=== PATIENT | female | born 1940 | race Caucasian/White ===

== ENCOUNTER 2018-02-26 23:55 | Inpatient (IN) | payer OTHER ==
[~2018-02-26] VITALS: Ht 160 cm; Wt 79.4 kg
[~2018-02-26 23:55] MED LIST: AMOX1TAB12 PO; ARTHROTEC1 UDTAB.E1 PO; AZATHIOPRINE50 MG; CARVEDILOL6.25 MG; CEFUROXIME250 MG; CLARINEX5 MG/TAB PO; FLAGYL500MG PO; LORATADINE10 MG; LOSARTAN POTASS50 MG; NASACORT AQ16.5 GM; PRILOSEC40 MG PO; PROTONIX40 MG PO; SEPTRA DS TABLE1 TAB PO; SPIRONOLACTONE25 MG; ULTRACET PO
[2018-03-01] MEDS ORDERED: LEVSIN/SL0.125 MG PO (09:34)
[2018-03-01] MEDS ORDERED: AMOX1TAB5 PO (09:34)
== END 2018-03-01 14:35 | disposition home or self-care (01) | DRG 392 ==
LOC: ER 23:55 → MEDI 02-27 09:56
PROC: BW21Y0Z Computerized Tomography (CT Scan) of Abdomen and Pelvis using Other Contrast, Unenhanced and Enhanced (ICD-10-PCS; principal; 2018-02-27)
DX: K57.32 Diverticulitis of large intestine without perforation or abscess without bleeding (principal); Z86.73 Personal history of transient ischemic attack (TIA), and cerebral infarction without residual deficits

== ENCOUNTER 2018-05-01 09:56 | Inpatient (IN) | payer OTHER ==
[~2018-05-01] VITALS: Ht 157.5 cm; Wt 77.1 kg
[~2018-05-01 09:56] MED LIST changes: +AMOX1TAB5 PO; +LEVSIN/SL0.125 MG PO
[2018-05-10] MEDS ORDERED: PREVACID30 MG PO (12:09)
[2018-05-28] MEDS ORDERED: HYOSCYAMINE0.125 M1 SL (09:54)
[2018-05-28] MEDS ORDERED: NeurRONTin 100mg cap PO (09:56)
[2018-05-30] MEDS ORDERED: SYNTHROID75 MCG (17:07)
== END 2018-05-28 12:31 | disposition home or self-care (01) | DRG 329 ==
LOC: SURH 05-21 06:10 → O/R 05-21 06:10 → SURH 05-21 07:00
PROVIDERS: Surgery
PROC: 0DJD8ZZ Inspection of Lower Intestinal Tract, Via Natural or Artificial Opening Endoscopic (ICD-10-PCS; 2018-05-21)
PROC: 0DTN4ZZ Resection of Sigmoid Colon, Percutaneous Endoscopic Approach (ICD-10-PCS; principal; 2018-05-21 07:00)
PROC: 3E0F7GC Introduction of Other Therapeutic Substance into Respiratory Tract, Via Natural or Artificial Opening (ICD-10-PCS; 2018-05-23)
PROC: 4A033R1 Measurement of Arterial Saturation, Peripheral, Percutaneous Approach (ICD-10-PCS; 2018-05-23)
PROC: BB24Y0Z Computerized Tomography (CT Scan) of Bilateral Lungs using Other Contrast, Unenhanced and Enhanced (ICD-10-PCS; 2018-05-24)
DX: K57.20 Diverticulitis of large intestine with perforation and abscess without bleeding (principal); J18.9 Pneumonia, unspecified organism; J95.89 Other postprocedural complications and disorders of respiratory system, not elsewhere classified; J90 Pleural effusion, not elsewhere classified; J98.11 Atelectasis; B37.0 Candidal stomatitis; Z86.73 Personal history of transient ischemic attack (TIA), and cerebral infarction without residual deficits; R09.02 Hypoxemia; J20.9 Acute bronchitis, unspecified

== ENCOUNTER 2018-05-30 16:47 | Emergency (ER) | payer OTHER ==
[~2018-05-30] VITALS: Ht 157.5 cm; Wt 79.4 kg
== END 2018-05-31 14:23 | disposition home or self-care (01) ==
LOC: ER 16:47
DX: K80.20 Calculus of gallbladder without cholecystitis without obstruction (principal); K57.90 Diverticulosis of intestine, part unspecified, without perforation or abscess without bleeding; I87.2 Venous insufficiency (chronic) (peripheral)

== ENCOUNTER 2019-04-05 05:28 | Emergency (ER) | payer OTHER ==
[~2019-04-05] VITALS: Ht 154.9 cm; Wt 81.6 kg
[~2019-04-05 05:28] MED LIST changes: +HYOSCYAMINE0.125 M1 SL; +NeurRONTin 100mg cap PO; +PREVACID30 MG PO; +SYNTHROID75 MCG
== END 2019-04-05 14:13 | disposition home or self-care (01) ==
LOC: ER 05:28
DX: K29.70 Gastritis, unspecified, without bleeding (principal); K80.20 Calculus of gallbladder without cholecystitis without obstruction

== ENCOUNTER 2019-04-08 09:55 | Inpatient (IN) | payer OTHER ==
[~2019-04-08] VITALS: Ht 61 cm; Wt 5.0 kg
[2019-04-08] MEDS ORDERED: LEVSIN0.125 MG (10:56)
[2019-04-08] MEDS ORDERED: AMOX-CLAV 875-1 EACH (10:58)
[2019-04-11] MEDS ORDERED: INTESTINEX680 M1 PO (12:09)
== END 2019-04-11 13:59 | disposition home or self-care (01) | DRG 419 ==
LOC: ER 09:55 → SURG 19:03
PROVIDERS: Surgery; ADMIT Internal Medicine
PROC: BW40ZZZ Ultrasonography of Abdomen (ICD-10-PCS; 2019-04-08)
PROC: 0FT44ZZ Resection of Gallbladder, Percutaneous Endoscopic Approach (ICD-10-PCS; principal; 2019-04-09 13:30)
DX: K80.00 Calculus of gallbladder with acute cholecystitis without obstruction (principal); E03.8 Other specified hypothyroidism; Z86.73 Personal history of transient ischemic attack (TIA), and cerebral infarction without residual deficits; I11.9 Hypertensive heart disease without heart failure; I25.10 Atherosclerotic heart disease of native coronary artery without angina pectoris

== ENCOUNTER 2019-10-31 05:50 | Day surgery (SDC) | payer OTHER ==
[~2019-10-31 05:50] MED LIST changes: +AMOX-CLAV 875-1 EACH; +INTESTINEX680 M1 PO; +LEVSIN0.125 MG
== END 2019-10-31 10:10 | disposition home or self-care (01) ==
LOC: AMB-ENDOS 05:50
DX: K57.30 Diverticulosis of large intestine without perforation or abscess without bleeding (principal); K62.89 Other specified diseases of anus and rectum

== ENCOUNTER 2021-03-29 20:00 | Emergency (ER) | payer OTHER ==
[~2021-03-29] VITALS: Ht 165.1 cm; Wt 85.3 kg
[2021-03-29] MEDS ORDERED: DRAMAMINE LESS25 MG PO (23:38)
== END 2021-03-30 00:11 | disposition home or self-care (01) ==
LOC: ER 20:00
DX: R42 Dizziness and giddiness (principal)

== ENCOUNTER 2023-07-31 05:51 | Emergency (ER) | payer OTHER ==
[~2023-07-31] VITALS: Ht 162.6 cm; Wt 72.6 kg
[~2023-07-31 05:51] MED LIST changes: +DRAMAMINE LESS25 MG PO
[2023-07-31 09:01] LABS: PH,URINE 6.5 (5.0-8.0); URINE APPEARANCE Clear; URINE BILIRRUBIN Negative (NEGATIVE); URINE BLOOD Trace; URINE COLOR Yellow; URINE GLUCOSE Negative (NEGATIVE); URINE LEUKOCYTE Trace; URINE NITRATE Positive; URINE PROTEIN Negative (NEGATIVE); URINE UROBILINOGEN 0.2 E.U./dl
[2023-07-31 09:02] LABS: URINE EPITHELIAL CELLS 2.7 uL (0.0-38.8); URINE WBC 20.8 uL (0.0-23.2)
[2023-07-31 09:11] LABS: URINE BACTERIA > 9821.5 uL (0.0-1933)
[2023-07-31 09:52] LABS: HEMATOCRIT 41.9 % (36.0-45.00); MEAN CELL VOLUME 92.6 fL (80.00-100.00); MEAN CORPUSCULAR HEMOGLOBIN 30.9 pg (27.00-32.0); MEAN CORPUSCULAR HGB CONC 33.3 g/dl (32.0-36.0); PLATELET COUNT 262 K/uL (150-450); RED BLOOD COUNT 4.52 M/uL (4.00-6.00); RED CELL DISTRIBUTION WIDTH 14.3 % (11.5-14.5)
[2023-07-31 10:51] LABS: ALBUMIN 3.3 gm/dL (3.4-5.0); BILIRUBIN TOTAL 0.37 mg/dL (0.3-1.2); CALCIUM 8.7 mg/dL (8.5-10.1); CREATININE SERUM 0.86 mg/dL (0.55-1.02); GFR 63.33; GLOBULINA 3.7 G/DL (2.4-3.5); POTASSIUM 4.27 mEq/L (3.5-5.1)
[2023-07-31 11:06] LABS: PARTIAL THROMBOPLASTIN TIME 27.6 SECONDS (22.0-34.0); PROTHROMBIN TIME 10.5 SECONDS (9.0-11.5)
[2023-07-31] MEDS ORDERED: BACTRIM DS TAB1 EACH PO (11:26)
== END 2023-07-31 12:49 | disposition home or self-care (01) ==
LOC: ER 05:51
PROVIDERS: General Practice
DX: N39.0 Urinary tract infection, site not specified (principal)

== ENCOUNTER 2024-08-01 10:44 | Outpatient (CLI) | payer OTHER ==
[~2024-08-01 10:44] MED LIST changes: +BACTRIM DS TAB1 EACH PO
== END 2024-08-01 10:45 | disposition home or self-care (01) ==
LOC: NUCLEAR 10:44
PROVIDERS: ATTEND Internal Medicine
DX: R00.1 Bradycardia, unspecified (principal)

== ENCOUNTER 2024-08-01 18:06 | Emergency (ER) | payer OTHER ==
[~2024-08-01] VITALS: Ht 160 cm; Wt 81.6 kg
[2024-08-01] MEDS ORDERED: MORPHINE SULFATE 4 MG/ML VIAL IV ONE (20:15)
[2024-08-01 20:48] LABS: HEMATOCRIT 40.4 % (36.0-45.00); HEMOGLOBIN 13.7 g/dL (12.0-15.00); MEAN CELL VOLUME 91.7 fL (80.00-100.00); MEAN CORPUSCULAR HEMOGLOBIN 31.2 pg (27.00-32.0); PLATELET COUNT 256 K/uL (150-450); RED BLOOD COUNT 4.41 M/uL (4.00-6.00); RED CELL DISTRIBUTION WIDTH 13.4 % (11.5-14.5)
[2024-08-01 21:12] LABS: PARTIAL THROMBOPLASTIN TIME 27.4 SECONDS (22.0-34.0); PROTHROMBIN TIME 10.9 SECONDS (9.0-11.5)
[2024-08-01 21:16] LABS: CREATININE SERUM 0.89 mg/dL (0.55-1.02); GFR 60.72; POTASSIUM 3.85 mEq/L (3.5-5.1)
[2024-08-01] MEDS ORDERED: ENALAPRILAT DIHYDRATE 2.5 MG/2 ML VIAL IV SCH (23:00)
[2024-08-01] MEDS ORDERED: ONDANSETRON HCL 2 MG/ML VIAL IV ONE (23:45)
[2024-08-01] MEDS ORDERED: FAMOTIDINE/PF 20 MG/2 ML VIAL IV ONE (23:45)
[2024-08-02] MEDS ORDERED: MORPHINE SULFATE 4 MG/ML VIAL IV SCH (01:00)
[2024-08-02] MEDS ORDERED: ONDANSETRON HCL 2 MG/ML VIAL IV ONE (05:00)
[2024-08-02] MEDS ORDERED: LORazepam 2 MG/ML VIAL IM STA (07:03)
== END 2024-08-02 14:40 | disposition designated cancer center or children's hospital (05) ==
LOC: ER 18:06
PROVIDERS: Emergency Medicine
DX: H53.8 Other visual disturbances (principal); R51.9 Headache, unspecified; Z88.1 Allergy status to other antibiotic agents

== ENCOUNTER 2024-08-15 05:36 | Inpatient (IN) | payer OTHER ==
[~2024-08-15] VITALS: Ht 165.1 cm; Wt 68.0 kg
[2024-08-15] MEDS ORDERED: PROMETHAZINE HCL 25 MG/ML AMPUL IM STA (06:20)
[2024-08-15] MEDS ORDERED: FAMOTIDINE/PF 20 MG/2 ML VIAL IV PUSH STA (06:21)
[2024-08-15] MEDS ORDERED: 0.9 % SODIUM CHLORIDE 1,000 ML IV ONE (06:30)
[2024-08-15 07:21] LABS: HEMATOCRIT 43.8 % (36.0-45.00); HEMOGLOBIN 15.1 g/dL (12.0-15.00); MEAN CELL VOLUME 91.1 fL (80.00-100.00); MEAN CORPUSCULAR HEMOGLOBIN 31.4 pg (27.00-32.0); MEAN CORPUSCULAR HGB CONC 34.4 g/dl (32.0-36.0); PLATELET COUNT 291 K/uL (150-450); RED BLOOD COUNT 4.81 M/uL (4.00-6.00); RED CELL DISTRIBUTION WIDTH 14.3 % (11.5-14.5)
[2024-08-15 07:46] LABS: INR 1.01; PARTIAL THROMBOPLASTIN TIME 25.9 SECONDS (22.0-34.0)
[2024-08-15 07:52] LABS: ALBUMIN 3.7 gm/dL (3.4-5.0); BILIRUBIN TOTAL 0.6 mg/dL (0.3-1.2); BILIRUBIN,CONJUGATED 0.18 mg/dL (0.0-0.2); BILIRUBIN,UNCONJUGATED 0.42 mg/dL (0.0-0.6); CALCIUM 9.3 mg/dL (8.5-10.1); CREATININE SERUM 0.89 mg/dL (0.55-1.02); GFR 60.72; GLOBULINA 3.9 G/DL (2.4-3.5); POTASSIUM 3.66 mEq/L (3.5-5.1); TOTAL PROTEIN 7.6 gm/dL (6.4-8.2)
[2024-08-15] MEDS ORDERED: ONDANSETRON HCL 2 MG/ML VIAL IV STA ×2 (09:29→12:56)
[2024-08-15] MEDS ORDERED: FAMOTIDINE/PF 20 MG in 0.9 % SODIUM CHLORIDE 8 ML IV PUSH STA (12:56)
[2024-08-15] MEDS ORDERED: MORPHINE SULFATE 4 MG/ML VIAL IV ONE (16:30)
[2024-08-15] MEDS ORDERED: ACETAMINOPHEN 500 MG GEL..CAP PO PRN (17:45)
[2024-08-15] MEDS ORDERED: MORPHINE SULFATE 4 MG/ML CARTRIDGE IV PRN (17:45)
[2024-08-15 17:54] VITALS: BP 155/77
[2024-08-15] MEDS ORDERED: PIPERACILLIN/TAZOBACTAM SODIUM 3.375 GM in 0.9 % SODIUM CHLORIDE 100 ML IV SCH (18:00)
[2024-08-15] MEDS ORDERED: RINGERS SOLUTION,LACTATED 1,000 ML IV SCH (18:00)
[2024-08-15 18:27] LABS: ABG PH 7.389 (7.35-7.45); ABG PO2 64.7 mmHg (80-100); ABG pCO2 35.4 mmHg (35-45); BASE EXCESS -3.3 mmol/l; BICARBONATE 20.9 mmol/l (23-25); SaO2 91.8 %
[2024-08-15 18:32] LABS: allen test SATISFACTORY; o2 21 %; puncture site RADIAL LEFT
[2024-08-15 18:58] LABS: INR 1.05; PARTIAL THROMBOPLASTIN TIME 26.9 SECONDS (22.0-34.0); PROTHROMBIN TIME 11.4 SECONDS (9.0-11.5)
[2024-08-15 21:21] VITALS: O2SAT 96
[2024-08-16] VITALS (10 sets, daily range): BP systolic 142–185; BP diastolic 65–75; O2SAT 87–97
[2024-08-16 05:30] LABS: ALBUMIN 3.1 gm/dL (3.4-5.0); BILIRUBIN TOTAL 1.25 mg/dL (0.3-1.2); BILIRUBIN,CONJUGATED 0.5 mg/dL (0.0-0.2); BILIRUBIN,UNCONJUGATED 0.75 mg/dL (0.0-0.6); CHOL HDL RATIO 1.9 (0-5.0); MAGNESIUM 1.8 mg/dL (1.8-2.4); TOTAL PROTEIN 6.6 gm/dL (6.4-8.2)
[2024-08-16] MEDS ORDERED: LEVOTHYROXINE SODIUM 75 MCG TABLET PO SCH (06:00)
[2024-08-16] MEDS ORDERED: ENOXAPARIN SODIUM 40 MG/0.4 ML SYRINGE SUBCUTANEO SCH (09:00)
[2024-08-16] MEDS ORDERED: PANTOPRAZOLE SODIUM 40 MG/VIAL VIAL IV SCH (09:00)
[2024-08-16] MEDS ORDERED: METOPROLOL TARTRATE 5MG/5ML AMPUL IV NR (17:00)
[2024-08-16] MEDS ORDERED: AMIODARONE HCL 50 MG/ML AMPUL IV NR (17:45)
[2024-08-16] MEDS ORDERED: AMIODARONE HCL 50 MG/ML AMPUL IV SCH (17:45)
[2024-08-16] MEDS ORDERED: LIDOCAINE 5% 1 PATCH ADH. TOP PRN (23:00)
[2024-08-17] VITALS (10 sets, daily range): BP systolic 114–185; BP diastolic 55–85; O2SAT 90–96
[2024-08-17] MEDS ORDERED: MORPHINE SULFATE 4 MG/ML CARTRIDGE IV ONE (08:00)
[2024-08-17 08:57] LABS: ALBUMIN 2.7 gm/dL (3.4-5.0); BILIRUBIN TOTAL 0.64 mg/dL (0.3-1.2); CALCIUM 7.9 mg/dL (8.5-10.1); CREATININE SERUM 0.74 mg/dL (0.55-1.02); GFR 75.13; GLOBULINA 3.4 G/DL (2.4-3.5); POTASSIUM 3.8 mEq/L (3.5-5.1); TOTAL PROTEIN 6.1 gm/dL (6.4-8.2)
[2024-08-17 10:09] LABS: HEMATOCRIT 44.7 % (36.0-45.00); MEAN CELL VOLUME 92.3 fL (80.00-100.00); MEAN CORPUSCULAR HGB CONC 33.6 g/dl (32.0-36.0); PLATELET COUNT 248 K/uL (150-450); RED BLOOD COUNT 4.84 M/uL (4.00-6.00); RED CELL DISTRIBUTION WIDTH 14.6 % (11.5-14.5)
[2024-08-17] MEDS ORDERED: hydrALAZINE HCL 20 MG VIAL IV STA (12:27)
[2024-08-17] MEDS ORDERED: LOSARTAN POTASSIUM 50 MG TABLET PO SCH (13:30)
[2024-08-17] MEDS ORDERED: CARVEDILOL 3.125 MG TABLET PO NR (13:30)
[2024-08-17] MEDS ORDERED: SIMETHICONE 125 MG CAPSULE PO SCH (17:00)
[2024-08-17] MEDS ORDERED: MORPHINE SULFATE 4 MG/ML CARTRIDGE IV PRN (19:45)
[2024-08-17] MEDS ORDERED: CARVEDILOL 3.125 MG TABLET PO SCH (21:00)
[2024-08-18] VITALS (9 sets, daily range): BP systolic 116–160; BP diastolic 71–83; O2SAT 91–99
[2024-08-18] MEDS ORDERED: AMIODARONE HCL 50 MG/ML AMPUL IV ONE (07:15)
[2024-08-18 07:40] LABS: PH,URINE 5.5 (5.0-8.0); URINE APPEARANCE Cloudy; URINE BILIRRUBIN Small (NEGATIVE); URINE BLOOD Trace; URINE COLOR Dark Yellow; URINE GLUCOSE Negative (NEGATIVE); URINE KETONE Trace (NEGATIVE); URINE LEUKOCYTE Small; URINE NITRATE Negative
[2024-08-18 07:44] LABS: URINE BACTERIA 115.9 uL (0.0-1933); URINE EPITHELIAL CELLS 58.2 uL (0.0-38.8); URINE RBC 10.8 uL (0.0-20.8); URINE WBC 89.2 uL (0.0-23.2)
[2024-08-18 08:36] LABS: AMYLASE 124 U/L (25-115); LIPASE 44 U/L (13-75)
[2024-08-18 08:39] LABS: HEMATOCRIT 39.8 % (36.0-45.00); HEMOGLOBIN 13.7 g/dL (12.0-15.00); MEAN CELL VOLUME 90.4 fL (80.00-100.00); MEAN CORPUSCULAR HEMOGLOBIN 31.2 pg (27.00-32.0); MEAN CORPUSCULAR HGB CONC 34.5 g/dl (32.0-36.0); PLATELET COUNT 263 K/uL (150-450); RED CELL DISTRIBUTION WIDTH 14.6 % (11.5-14.5)
[2024-08-18 08:49] LABS: ALBUMIN 2.4 gm/dL (3.4-5.0); BILIRUBIN TOTAL 0.89 mg/dL (0.3-1.2); CALCIUM 7.9 mg/dL (8.5-10.1); CREATININE SERUM 0.53 mg/dL (0.55-1.02); GFR 110.44; GLOBULINA 3.3 G/DL (2.4-3.5); POTASSIUM 3.94 mEq/L (3.5-5.1); TOTAL PROTEIN 5.7 gm/dL (6.4-8.2)
[2024-08-18] MEDS ORDERED: AMIODARONE HCL 200 MG TABLET PO SCH (09:00)
[2024-08-18 09:42] LABS: URINE CAST 0.61 uL (0.0-1.40); URINE PROTEIN 300 (NEGATIVE)
[2024-08-18 12:55] LABS: C-REACTIVE PROTEIN 26.4 MG/DL (0.00-0.29)
[2024-08-18] MEDS ORDERED: hydrOXYzine PAMOATE 25 MG CAPSULE PO PRN (13:15)
[2024-08-18] MEDS ORDERED: AMIODARONE HCL 50 MG/ML AMPUL IV SCH (15:15)
[2024-08-18] MEDS ORDERED: FUROsemide 20 MG/2 ML VIAL IV SCH (20:01)
[2024-08-18] MEDS ORDERED: ENOXAPARIN SODIUM 40 MG/0.4 ML SYRINGE SUBCUTANEO SCH (21:00)
[2024-08-19] VITALS (8 sets, daily range): BP systolic 127–147; BP diastolic 67–74; O2SAT 78–98
[2024-08-19 07:06] LABS: HEMATOCRIT 41.8 % (36.0-45.00); HEMOGLOBIN 14.4 g/dL (12.0-15.00); MEAN CORPUSCULAR HEMOGLOBIN 31.9 pg (27.00-32.0); MEAN CORPUSCULAR HGB CONC 34.3 g/dl (32.0-36.0); PLATELET COUNT 188 K/uL (150-450); RED CELL DISTRIBUTION WIDTH 14.6 % (11.5-14.5)
[2024-08-19] MEDS ORDERED: METOPROLOL TARTRATE 25 MG TABLET PO SCH (09:00)
[2024-08-19] MEDS ORDERED: FAMOTIDINE/PF 20 MG/2 ML VIAL IV SCH (18:20)
[2024-08-19] MEDS ORDERED: ENOXAPARIN SODIUM 80 MG/0.8 ML SYRINGE SUBCUTANEO SCH (21:00)
[2024-08-20] VITALS (9 sets, daily range): BP systolic 135–143; BP diastolic 59–80; O2SAT 96–99
[2024-08-20 00:12] LABS: CALCIUM 7.9 mg/dL (8.5-10.1); CREATININE SERUM 0.68 mg/dL (0.55-1.02); GFR 82.84; POTASSIUM 3.63 mEq/L (3.5-5.1)
[2024-08-20 05:47] LABS: HEMATOCRIT 38.7 % (36.0-45.00); HEMOGLOBIN 12.9 g/dL (12.0-15.00); MEAN CELL VOLUME 92.6 fL (80.00-100.00); MEAN CORPUSCULAR HGB CONC 33.5 g/dl (32.0-36.0); PLATELET COUNT 174 K/uL (150-450); RED BLOOD COUNT 4.17 M/uL (4.00-6.00); RED CELL DISTRIBUTION WIDTH 14.7 % (11.5-14.5)
[2024-08-20 06:28] LABS: AMYLASE 50 U/L (25-115); LIPASE 15 U/L (13-75)
[2024-08-20 06:36] LABS: ALBUMIN 2.1 gm/dL (3.4-5.0); BILIRUBIN TOTAL 0.55 mg/dL (0.3-1.2); CALCIUM 7.8 mg/dL (8.5-10.1); CREATININE SERUM 0.54 mg/dL (0.55-1.02); GFR 108.08; GLOBULINA 3.3 G/DL (2.4-3.5); PHOSPHOROUS 2.1 mg/dL (2.5-4.9); POTASSIUM 3.86 mEq/L (3.5-5.1); TOTAL PROTEIN 5.4 gm/dL (6.4-8.2)
[2024-08-20] MEDS ORDERED: AMIODARONE HCL 200 MG TABLET PO SCH (09:00)
[2024-08-20] MEDS ORDERED: METOPROLOL TARTRATE 50 MG TABLET PO SCH (09:00)
[2024-08-20] MEDS ORDERED: POTASSIUM PHOS,M-BASIC-D-BASIC 15 MM in 0.9 % SODIUM CHLORIDE 250 ML IV ONE (14:00)
[2024-08-20] MEDS ORDERED: CALCIUM CARBONATE/VITAMIN D3 1 TAB TABLET PO SCH (17:00)
[2024-08-20] MEDS ORDERED: AMINO ACIDS/PROTEIN HYDROLYS 30 ML BLIST.PACK PO SCH (17:00)
[2024-08-20] MEDS ORDERED: SIMETHICONE 125 MG CAPSULE PO PRN (17:00)
[2024-08-21] VITALS (9 sets, daily range): BP systolic 136–154; BP diastolic 57–71; O2SAT 90–97
[2024-08-21 06:21] LABS: AMYLASE 23 U/L (25-115); LIPASE 10 U/L (13-75)
[2024-08-21] MEDS ORDERED: RIVAROXABAN 20 MG TABLET PO SCH (09:00)
[2024-08-21] MEDS ORDERED: METOCLOPRAMIDE HCL 5 MG/ML VIAL IV PRN (10:45)
[2024-08-21] MEDS ORDERED: ENALAPRILAT DIHYDRATE 1.25 MG/ML VIAL IV PRN (10:45)
[2024-08-21] MEDS ORDERED: METOPROLOL TARTRATE 25 MG TABLET PO SCH (17:00)
[2024-08-22] VITALS (9 sets, daily range): BP systolic 104–148; BP diastolic 62–79; O2SAT 93–98
[2024-08-22] MEDS ORDERED: GABAPENTIN 300 MG CAPSULE PO ONE ×2 (01:15→17:45)
[2024-08-22 04:52] LABS: HEMATOCRIT 38.6 % (36.0-45.00); HEMOGLOBIN 13.3 g/dL (12.0-15.00); MEAN CELL VOLUME 90.6 fL (80.00-100.00); MEAN CORPUSCULAR HEMOGLOBIN 31.2 pg (27.00-32.0); MEAN CORPUSCULAR HGB CONC 34.4 g/dl (32.0-36.0); PLATELET COUNT 307 K/uL (150-450); RED BLOOD COUNT 4.26 M/uL (4.00-6.00); RED CELL DISTRIBUTION WIDTH 14.4 % (11.5-14.5)
[2024-08-22 05:30] LABS: BILIRUBIN TOTAL 0.83 mg/dL (0.3-1.2); CALCIUM 8.4 mg/dL (8.5-10.1); CREATININE SERUM 0.57 mg/dL (0.55-1.02); GFR 101.54; GLOBULINA 3.4 G/DL (2.4-3.5); MAGNESIUM 1.8 mg/dL (1.8-2.4); PHOSPHOROUS 2.7 mg/dL (2.5-4.9); POTASSIUM 3.83 mEq/L (3.5-5.1); TOTAL PROTEIN 5.4 gm/dL (6.4-8.2)
[2024-08-22] MEDS ORDERED: METOPROLOL TARTRATE 50 MG TABLET PO SCH (09:00)
[2024-08-22] MEDS ORDERED: CEFEPIME HCL 2,000 MG in 0.9 % SODIUM CHLORIDE 100 ML IV SCH (17:00)
[2024-08-22] MEDS ORDERED: KETOROLAC TROMETHAMINE 30 MG VIAL IV ONE (17:45)
[2024-08-23] VITALS (10 sets, daily range): BP systolic 126–153; BP diastolic 59–71; O2SAT 96–99
[2024-08-23] MEDS ORDERED: METRONIDAZOLE/SODIUM CHLORIDE 500 MG/100 ML PIGGYBACK IV SCH (01:00)
[2024-08-23 05:24] LABS: HEMATOCRIT 33.4 % (36.0-45.00); HEMOGLOBIN 11.2 g/dL (12.0-15.00); MEAN CELL VOLUME 91.9 fL (80.00-100.00); MEAN CORPUSCULAR HEMOGLOBIN 30.7 pg (27.00-32.0); MEAN CORPUSCULAR HGB CONC 33.4 g/dl (32.0-36.0); PLATELET COUNT 275 K/uL (150-450); RED BLOOD COUNT 3.63 M/uL (4.00-6.00); RED CELL DISTRIBUTION WIDTH 14.1 % (11.5-14.5)
[2024-08-23 05:55] LABS: ALBUMIN 1.9 gm/dL (3.4-5.0); BILIRUBIN TOTAL 0.55 mg/dL (0.3-1.2); CREATININE SERUM 0.72 mg/dL (0.55-1.02); GFR 77.55; GLOBULINA 3.1 G/DL (2.4-3.5); POTASSIUM 3.8 mEq/L (3.5-5.1)
[2024-08-23 05:56] LABS: CHOL HDL RATIO 4.5 (0-5.0)
[2024-08-23 05:58] LABS: C-REACTIVE PROTEIN 12.6 MG/DL (0.00-0.29)
[2024-08-23] MEDS ORDERED: AA 4.25%/CAL/LYTES/DEXT 5% 1,000 ML PERIFERAL SCH (17:00)
[2024-08-23] MEDS ORDERED: KETOROLAC TROMETHAMINE 30 MG VIAL IV ONE (22:45)
[2024-08-23] MEDS ORDERED: GABAPENTIN 600 MG TABLET PO ONE (22:45)
[2024-08-24] VITALS (8 sets, daily range): BP systolic 132–150; BP diastolic 59–79; O2SAT 97–99
[2024-08-24] MEDS ORDERED: METOPROLOL TARTRATE 50 MG TABLET PO SCH ×2 (01:00→17:00)
[2024-08-24] MEDS ORDERED: METOPROLOL TARTRATE 25 MG TABLET PO SCH (10:09)
[2024-08-24 14:51] LABS: ABG PH 7.465 (7.35-7.45); ABG PO2 86.3 mmHg (80-100); ABG pCO2 43.4 mmHg (35-45); BASE EXCESS 6.1 mmol/l; BICARBONATE 30.6 mmol/l (23-25); SaO2 97.3 %; Tco2 31.9 mmol/l
[2024-08-24 14:52] LABS: allen test SATISFACTORY; o2 32 %; puncture site RADIAL LEFT
[2024-08-24] MEDS ORDERED: MORPHINE SULFATE 4 MG/ML VIAL IV ONE (22:30)
[2024-08-25] VITALS (8 sets, daily range): BP systolic 121–133; BP diastolic 56–67; O2SAT 95–100
[2024-08-25 07:42] LABS: HEMATOCRIT 34.9 % (36.0-45.00); HEMOGLOBIN 11.8 g/dL (12.0-15.00); MEAN CELL VOLUME 91.4 fL (80.00-100.00); MEAN CORPUSCULAR HGB CONC 33.9 g/dl (32.0-36.0); PLATELET COUNT 347 K/uL (150-450); RED BLOOD COUNT 3.81 M/uL (4.00-6.00); RED CELL DISTRIBUTION WIDTH 14.2 % (11.5-14.5)
[2024-08-25 08:28] LABS: ALBUMIN 2.1 gm/dL (3.4-5.0); BILIRUBIN TOTAL 0.64 mg/dL (0.3-1.2); CALCIUM 8.2 mg/dL (8.5-10.1); CREATININE SERUM 0.5 mg/dL (0.55-1.02); GFR 118.12; GLOBULINA 3.3 G/DL (2.4-3.5); PHOSPHOROUS 2.9 mg/dL (2.5-4.9); POTASSIUM 4.24 mEq/L (3.5-5.1); TOTAL PROTEIN 5.4 gm/dL (6.4-8.2)
[2024-08-25] MEDS ORDERED: GABAPENTIN 600 MG TABLET PO NR (13:30)
[2024-08-25] MEDS ORDERED: KETOROLAC TROMETHAMINE 30 MG VIAL IV ONE (13:30)
[2024-08-25] MEDS ORDERED: METOPROLOL TARTRATE 25 MG TABLET PO SCH (17:00)
[2024-08-26] VITALS (8 sets, daily range): BP systolic 120–153; BP diastolic 62–75; O2SAT 97–99
[2024-08-26 06:15] LABS: HEMATOCRIT 34.2 % (36.0-45.00); HEMOGLOBIN 11.6 g/dL (12.0-15.00); MEAN CELL VOLUME 91.6 fL (80.00-100.00); MEAN CORPUSCULAR HGB CONC 33.8 g/dl (32.0-36.0); PLATELET COUNT 344 K/uL (150-450); RED BLOOD COUNT 3.74 M/uL (4.00-6.00); RED CELL DISTRIBUTION WIDTH 14.2 % (11.5-14.5)
[2024-08-26 06:50] LABS: ALBUMIN 2.1 gm/dL (3.4-5.0); BILIRUBIN TOTAL 0.56 mg/dL (0.3-1.2); BILIRUBIN,CONJUGATED 0.23 mg/dL (0.0-0.2); BILIRUBIN,UNCONJUGATED 0.33 mg/dL (0.0-0.6); CALCIUM 8.1 mg/dL (8.5-10.1); CREATININE SERUM 0.58 mg/dL (0.55-1.02); GFR 99.53; GLOBULINA 3.1 G/DL (2.4-3.5); PHOSPHOROUS 2.8 mg/dL (2.5-4.9); POTASSIUM 4.35 mEq/L (3.5-5.1); TOTAL PROTEIN 5.2 gm/dL (6.4-8.2)
[2024-08-26 08:24] LABS: UREA CLEARANCE 22.6 ML/MIN
[2024-08-26] MEDS ORDERED: ONDANSETRON HCL 4 MG in 0.9 % SODIUM CHLORIDE 50 ML IV PRN (17:30)
[2024-08-27] VITALS (9 sets, daily range): BP systolic 139–173; BP diastolic 55–78; O2SAT 95–99
[2024-08-27 06:28] LABS: HEMATOCRIT 37.9 % (36.0-45.00); HEMOGLOBIN 12.7 g/dL (12.0-15.00); MEAN CELL VOLUME 92.5 fL (80.00-100.00); MEAN CORPUSCULAR HEMOGLOBIN 30.9 pg (27.00-32.0); MEAN CORPUSCULAR HGB CONC 33.4 g/dl (32.0-36.0); PLATELET COUNT 370 K/uL (150-450); RED CELL DISTRIBUTION WIDTH 14.3 % (11.5-14.5)
[2024-08-27 07:03] LABS: BILIRUBIN TOTAL 0.57 mg/dL (0.3-1.2); CALCIUM 7.8 mg/dL (8.5-10.1); CREATININE SERUM 0.54 mg/dL (0.55-1.02); GFR 108.08; GLOBULINA 3.2 G/DL (2.4-3.5); POTASSIUM 4.1 mEq/L (3.5-5.1); TOTAL PROTEIN 5.2 gm/dL (6.4-8.2)
[2024-08-27] MEDS ORDERED: CLONAZEPAM 0.5 MG TABLET PO ONE (11:00)
[2024-08-28] VITALS (9 sets, daily range): BP systolic 116–157; BP diastolic 74–76; O2SAT 96–99
[2024-08-29] VITALS (9 sets, daily range): BP systolic 105–171; BP diastolic 55–76; O2SAT 93–99
[2024-08-29 06:31] LABS: HEMATOCRIT 37.4 % (36.0-45.00); HEMOGLOBIN 12.8 g/dL (12.0-15.00); MEAN CELL VOLUME 91.7 fL (80.00-100.00); MEAN CORPUSCULAR HEMOGLOBIN 31.2 pg (27.00-32.0); MEAN CORPUSCULAR HGB CONC 34.1 g/dl (32.0-36.0); PLATELET COUNT 419 K/uL (150-450); RED BLOOD COUNT 4.08 M/uL (4.00-6.00); RED CELL DISTRIBUTION WIDTH 14.6 % (11.5-14.5)
[2024-08-29 07:26] LABS: ALBUMIN 2.3 gm/dL (3.4-5.0); BILIRUBIN TOTAL 0.37 mg/dL (0.3-1.2); CALCIUM 8.1 mg/dL (8.5-10.1); CREATININE SERUM 0.51 mg/dL (0.55-1.02); GFR 115.45; GLOBULINA 3.3 G/DL (2.4-3.5); MAGNESIUM 2.1 mg/dL (1.8-2.4); PHOSPHOROUS 2.7 mg/dL (2.5-4.9); POTASSIUM 5.23 mEq/L (3.5-5.1); TOTAL PROTEIN 5.6 gm/dL (6.4-8.2)
[2024-08-29] MEDS ORDERED: METOCLOPRAMIDE HCL 5 MG/ML VIAL IV PRN (10:30)
[2024-08-29] MEDS ORDERED: SODIUM POLYSTYRENE SULFONATE 30G/8 TSP PO NR (11:07)
[2024-08-29] MEDS ORDERED: FUROsemide 40 MG/4 ML VIAL IV STA (11:09)
[2024-08-29] MEDS ORDERED: AA 4.25%/CAL/LYTES/DEXT 5% 1,000 ML PERIFERAL SCH (17:00)
[2024-08-29] MEDS ORDERED: AMLODIPINE BESYLATE 5 MG TABLET PO SCH (19:17)
[2024-08-30] VITALS (9 sets, daily range): BP systolic 140–160; BP diastolic 55–78; O2SAT 90–100
[2024-08-30 04:11] LABS: ABG PH 7.444 (7.35-7.45); ABG pCO2 44.7 mmHg (35-45)
[2024-08-30 04:12] LABS: ABG PO2 41.8 mmHg (80-100); BASE EXCESS 5.1 mmol/l; Tco2 31.4 mmol/l; allen test SATISFACTORY; o2 21 %; puncture site BRADIAL LEFT
[2024-08-30 04:13] LABS: SaO2 80.3 %
[2024-08-30] MEDS ORDERED: METOPROLOL TARTRATE 50 MG TABLET PO ONE (21:45)
[2024-08-31] VITALS (9 sets, daily range): BP systolic 101–127; BP diastolic 55–73; O2SAT 96–100
[2024-08-31] MEDS ORDERED: METOPROLOL TARTRATE 25 MG TABLET PO SCH (01:00)
[2024-08-31] MEDS ORDERED: METOPROLOL TARTRATE 50 MG,METOPROLOL TARTRATE 25 MG PO NR (10:30)
[2024-08-31] MEDS ORDERED: METOPROLOL TARTRATE 50 MG,METOPROLOL TARTRATE 25 MG PO SCH (17:00)
[2024-08-31] MEDS ORDERED: LEVALBUTEROL HCL 0.63 MG/3 ML SOLUTION IH SCH (20:03)
[2024-09-01] VITALS (8 sets, daily range): BP systolic 132–171; BP diastolic 73–92; O2SAT 94–100
[2024-09-01 07:23] LABS: HEMATOCRIT 37.8 % (36.0-45.00); HEMOGLOBIN 12.8 g/dL (12.0-15.00); MEAN CELL VOLUME 93.4 fL (80.00-100.00); MEAN CORPUSCULAR HEMOGLOBIN 31.5 pg (27.00-32.0); MEAN CORPUSCULAR HGB CONC 33.7 g/dl (32.0-36.0); PLATELET COUNT 420 K/uL (150-450); RED BLOOD COUNT 4.05 M/uL (4.00-6.00); RED CELL DISTRIBUTION WIDTH 14.6 % (11.5-14.5)
[2024-09-01 07:55] LABS: ALBUMIN 2.7 gm/dL (3.4-5.0); BILIRUBIN TOTAL 0.51 mg/dL (0.3-1.2); CALCIUM 8.8 mg/dL (8.5-10.1); CREATININE SERUM 0.62 mg/dL (0.55-1.02); GFR 92.15; GLOBULINA 3.6 G/DL (2.4-3.5); POTASSIUM 4.55 mEq/L (3.5-5.1); TOTAL PROTEIN 6.3 gm/dL (6.4-8.2)
[2024-09-01 10:16] LABS: ABG PH 7.428 (7.35-7.45); ABG PO2 95.3 mmHg (80-100); ABG pCO2 46.8 mmHg (35-45); BASE EXCESS 4.9 mmol/l; BICARBONATE 30.2 mmol/l (23-25); SaO2 97.7 %; Tco2 31.7 mmol/l; o2 50 %; puncture site RADIAL RIGHT
[2024-09-01 10:17] LABS: allen test SATISFACTORY
[2024-09-01 14:11] LABS: ABG PO2 76.6 mmHg (80-100); ABG pCO2 43.2 mmHg (35-45); BASE EXCESS 5.5 mmol/l; SaO2 96.1 %; Tco2 31.4 mmol/l; o2 40 %
[2024-09-01 14:12] LABS: allen test SATISFACTORY; puncture site RADIAL LEFT
[2024-09-02] VITALS (8 sets, daily range): BP systolic 115–161; BP diastolic 69–77; O2SAT 93–100
[2024-09-02 17:50] LABS: ABG PH 7.478 (7.35-7.45); ABG pCO2 38.6 mmHg (35-45); BASE EXCESS 4.3 mmol/l; SaO2 88.7 %
[2024-09-02 17:51] LABS: ABG PO2 50.5 mmHg (80-100); Tco2 29.2 mmol/l; allen test SATISFACTORY; o2 21 %; puncture site RADIAL RIGHT
[2024-09-03] VITALS (8 sets, daily range): BP systolic 142–157; BP diastolic 70–76; O2SAT 90–98
[2024-09-03 12:16] LABS: HEMATOCRIT 35.4 % (36.0-45.00); HEMOGLOBIN 12.1 g/dL (12.0-15.00); MEAN CELL VOLUME 92.6 fL (80.00-100.00); MEAN CORPUSCULAR HEMOGLOBIN 31.6 pg (27.00-32.0); MEAN CORPUSCULAR HGB CONC 34.1 g/dl (32.0-36.0); PLATELET COUNT 285 K/uL (150-450); RED BLOOD COUNT 3.82 M/uL (4.00-6.00); RED CELL DISTRIBUTION WIDTH 15.1 % (11.5-14.5)
[2024-09-03 13:14] LABS: ALBUMIN 2.5 gm/dL (3.4-5.0); BILIRUBIN TOTAL 0.57 mg/dL (0.3-1.2); CALCIUM 8.6 mg/dL (8.5-10.1); CREATININE SERUM 0.61 mg/dL (0.55-1.02); GFR 93.9; GLOBULINA 3.5 G/DL (2.4-3.5); POTASSIUM 4.84 mEq/L (3.5-5.1)
[2024-09-04 01:43] VITALS: BP 136/63; O2SAT 96
[2024-09-04 07:45] VITALS: BP 155/77; O2SAT 97
[2024-09-04 09:00] VITALS: O2SAT 99
[2024-09-04] MEDS ORDERED: AMIODARONE HCL200 MG PO (10:32)
[2024-09-04] MEDS ORDERED: XARELTO20 MG PO (10:32)
[2024-09-04] MEDS ORDERED: LEVOTHYROXINE75 MCG PO (10:33)
[2024-09-04] MEDS ORDERED: CALCIUM 500-VI1 EAC6 PO (10:33)
[2024-09-04] MEDS ORDERED: METOPROLOL TART75 MG PO (10:34)
[2024-09-04] MEDS ORDERED: PRE PROTEIN1 EACH PO (10:34)
[2024-09-04] MEDS ORDERED: PANTOPRAZOLE SO20 MG PO (10:35)
[2024-09-04] MEDS ORDERED: LOPRESSOR25 MG PO (11:39)
== END 2024-09-04 13:28 | disposition home or self-care (01) | DRG 439 ==
LOC: ER 05:36 → MEDI 18:01
PROVIDERS: General Practice; Internal Medicine; Internal Medicine Infectious Disease; Student in an Organized Health Care Education/Training Program; ADMIT Internal Medicine; ATTEND Internal Medicine
PROC: BF37ZZZ Magnetic Resonance Imaging (MRI) of Pancreas (ICD-10-PCS; principal; 2024-08-15)
PROC: 4A12X4Z Monitoring of Cardiac Electrical Activity, External Approach (ICD-10-PCS; 2024-08-15)
PROC: BW40ZZZ Ultrasonography of Abdomen (ICD-10-PCS; 2024-08-15)
PROC: BW21YZZ Computerized Tomography (CT Scan) of Abdomen and Pelvis using Other Contrast (ICD-10-PCS; 2024-08-15)
PROC: B246ZZZ Ultrasonography of Right and Left Heart (ICD-10-PCS; 2024-08-18)
PROC: BW21YZZ Computerized Tomography (CT Scan) of Abdomen and Pelvis using Other Contrast (ICD-10-PCS; 2024-08-22)
PROC: BW21ZZZ Computerized Tomography (CT Scan) of Abdomen and Pelvis (ICD-10-PCS; 2024-08-22)
PROC: 02HV33Z Insertion of Infusion Device into Superior Vena Cava, Percutaneous Approach (ICD-10-PCS; 2024-08-23)
PROC: BB24YZZ Computerized Tomography (CT Scan) of Bilateral Lungs using Other Contrast (ICD-10-PCS; 2024-08-30)
PROC: 3E0F7GC Introduction of Other Therapeutic Substance into Respiratory Tract, Via Natural or Artificial Opening (ICD-10-PCS; 2024-09-01)
DX: K85.90 Acute pancreatitis without necrosis or infection, unspecified (principal); I48.20 Chronic atrial fibrillation, unspecified; J90 Pleural effusion, not elsewhere classified; J98.11 Atelectasis; Z16.23 Resistance to quinolones and fluoroquinolones; D72.829 Elevated white blood cell count, unspecified; M54.9 Dorsalgia, unspecified; I11.9 Hypertensive heart disease without heart failure; E03.9 Hypothyroidism, unspecified; E87.5 Hyperkalemia; R09.02 Hypoxemia; Z88.1 Allergy status to other antibiotic agents; Z98.42 Cataract extraction status, left eye

== ENCOUNTER 2024-09-09 13:33 | Inpatient (IN) | payer OTHER ==
[~2024-09-09] VITALS: Ht 157.5 cm; Wt 68.0 kg
[~2024-09-09 13:33] MED LIST changes: +AMIODARONE HCL200 MG PO; +CALCIUM 500-VI1 EAC6 PO; +LEVOTHYROXINE75 MCG PO; +LOPRESSOR25 MG PO; +METOPROLOL TART75 MG PO; +PANTOPRAZOLE SO20 MG PO; +PRE PROTEIN1 EACH PO; +XARELTO20 MG PO
[2024-09-09] MEDS ORDERED: DILTIAZEM HCL 125MG/25ML VIAL IV ONE ×2 (13:45→14:00)
[2024-09-09] MEDS ORDERED: 0.9 % SODIUM CHLORIDE 1,000 ML IV ONE (13:45)
[2024-09-09 13:50] LABS: HEMATOCRIT 38.1 % (36.0-45.00); HEMOGLOBIN 12.4 g/dL (12.0-15.00); MEAN CELL VOLUME 93.5 fL (80.00-100.00); MEAN CORPUSCULAR HEMOGLOBIN 30.3 pg (27.00-32.0); MEAN CORPUSCULAR HGB CONC 32.4 g/dl (32.0-36.0); PLATELET COUNT 332 K/uL (150-450); RED BLOOD COUNT 4.08 M/uL (4.00-6.00); RED CELL DISTRIBUTION WIDTH 15.4 % (11.5-14.5)
[2024-09-09 14:10] LABS: ABG PH 7.467 (7.35-7.45); ABG PO2 73.9 mmHg (80-100); ABG pCO2 44.1 mmHg (35-45); BASE EXCESS 6.6 mmol/l; BICARBONATE 31.1 mmol/l (23-25); SaO2 95.9 %; Tco2 32.5 mmol/l
[2024-09-09 14:11] LABS: allen test SATISFACTORY; o2 28 %; puncture site RADIAL LEFT
--- NOTE | 2024-09-09 14:33 | NUR ---
PACIENTE FEMINA EN AMBULANCIA ALERTA Y ORIENTADA X3 EN COMPANIA DE FAMILIAR QUIEN REFIERE QUE ES TRASFERIDA POR PALPITACIONES. SE UBICA PACIENTE EN AREA DE CHEST PAIN, SE CONECTA A MONITOR CARDIACO Y OXIMETRIA DE PULSO CONTINUA, SE CANALIZA Y SE LE ADMINSITRAN Y SE LE COLOCA IV FLUIDS ISAÍAS ORDEN MEADICA. SE LE COLECTA MUESTRAS, SE INSERTA SONDA URINARIA BAJO MEDIDAS ASEPTICAS, SE OBSERVA CON EGRESO COLOR AMARILLO ROBER Y BELEM DE [place].
[2024-09-09 14:36] LABS: INR 1.51; PARTIAL THROMBOPLASTIN TIME 31.8 SECONDS (22.0-34.0)
[2024-09-09 14:37] LABS: ALBUMIN 2.7 gm/dL (3.4-5.0); BILIRUBIN TOTAL 0.85 mg/dL (0.3-1.2); CALCIUM 8.7 mg/dL (8.5-10.1); CREATININE SERUM 0.73 mg/dL (0.55-1.02); GFR 76.32; GLOBULINA 3.7 G/DL (2.4-3.5); POTASSIUM 4.06 mEq/L (3.5-5.1); TOTAL PROTEIN 6.4 gm/dL (6.4-8.2)
[2024-09-09] MEDS ORDERED: DILTIAZEM HCL 125MG/25ML VIAL IV SCH (14:45)
[2024-09-09 14:50] LABS: PH,URINE 7.5 (5.0-8.0); URINE APPEARANCE Clear; URINE BILIRRUBIN Negative (NEGATIVE); URINE BLOOD Negative; URINE COLOR Yellow; URINE GLUCOSE Negative (NEGATIVE); URINE KETONE Negative (NEGATIVE); URINE LEUKOCYTE Large; URINE NITRATE Negative; URINE PROTEIN Negative (NEGATIVE); URINE UROBILINOGEN 0.2 E.U./dl
[2024-09-09 14:54] LABS: URINE BACTERIA 6832.3 uL (0.0-1933); URINE EPITHELIAL CELLS 2.4 uL (0.0-38.8); URINE WBC 307.1 uL (0.0-23.2)
[2024-09-09 14:57] LABS: URINE RBC 0.3 uL (0.0-20.8)
[2024-09-09] MEDS ORDERED: METOPROLOL TARTRATE 50 MG TABLET PO SCH (17:00)
[2024-09-09] MEDS ORDERED: AMIODARONE HCL 200 MG TABLET PO SCH (17:00)
[2024-09-09] MEDS ORDERED: CEFTRIAXONE SODIUM 2,000 MG VIAL IV STA (18:05)
[2024-09-09] MEDS ORDERED: FUROsemide 20 MG/2 ML VIAL IV SCH (18:54)
[2024-09-09] MEDS ORDERED: AZITHROMYCIN 500 MG in DEXTROSE 5 % IN WATER 250 ML IV SCH (19:19)
[2024-09-09 22:38] VITALS: BP 127/49; O2SAT 95
[2024-09-09 23:30] VITALS: BP 142/62; O2SAT 99
[2024-09-10] VITALS (13 sets, daily range): BP systolic 102–150; BP diastolic 46–65; O2SAT 95–100
[2024-09-10] MEDS ORDERED: LEVOTHYROXINE SODIUM 75 MCG TABLET PO SCH (06:00)
[2024-09-10 06:59] LABS: HEMATOCRIT 33.9 % (36.0-45.00); HEMOGLOBIN 11.7 g/dL (12.0-15.00); MEAN CELL VOLUME 90.8 fL (80.00-100.00); MEAN CORPUSCULAR HEMOGLOBIN 31.2 pg (27.00-32.0); MEAN CORPUSCULAR HGB CONC 34.3 g/dl (32.0-36.0); PLATELET COUNT 266 K/uL (150-450); RED BLOOD COUNT 3.74 M/uL (4.00-6.00); RED CELL DISTRIBUTION WIDTH 14.7 % (11.5-14.5)
[2024-09-10 07:29] LABS: ALBUMIN 2.3 gm/dL (3.4-5.0); BILIRUBIN TOTAL 0.56 mg/dL (0.3-1.2); CREATININE SERUM 0.57 mg/dL (0.55-1.02); GFR 101.54; GLOBULINA 3.6 G/DL (2.4-3.5); MAGNESIUM 1.5 mg/dL (1.8-2.4); PHOSPHOROUS 3.4 mg/dL (2.5-4.9); POTASSIUM 3.66 mEq/L (3.5-5.1); TOTAL PROTEIN 5.9 gm/dL (6.4-8.2)
[2024-09-10] MEDS ORDERED: RIVAROXABAN 20 MG TABLET PO SCH (09:00)
[2024-09-10] MEDS ORDERED: CALCIUM CARBONATE/VITAMIN D3 1 TAB TABLET PO SCH (09:00)
[2024-09-10] MEDS ORDERED: METOPROLOL TARTRATE 50 MG TABLET PO SCH (09:00)
[2024-09-10] MEDS ORDERED: CEFTRIAXONE SODIUM 2,000 MG VIAL IV SCH (09:00)
[2024-09-10] MEDS ORDERED: AZITHROMYCIN 500 MG VIAL IV SCH (09:00)
[2024-09-10] MEDS ORDERED: PANTOPRAZOLE SODIUM 40 MG/VIAL VIAL IV SCH (09:00)
[2024-09-10] MEDS ORDERED: MAGNESIUM SULFATE IN WATER 4 GM/100 ML PIGGYBACK IV NR (11:00)
[2024-09-10] MEDS ORDERED: METHYLPREDNISOLONE SOD SUCC 40 MG VIAL IV ONE (14:00)
[2024-09-10] MEDS ORDERED: ALBUTEROL SULFATE 3 ML/2.5 MG AMPUL.NEB IH STA (14:05)
[2024-09-10] MEDS ORDERED: AMIODARONE HCL 200 MG TABLET PO SCH (17:00)
[2024-09-10] MEDS ORDERED: ALBUTEROL SULFATE 3 ML/2.5 MG AMPUL.NEB IH SCH (20:00)
[2024-09-10] MEDS ORDERED: FUROsemide 20 MG/2 ML VIAL IV SCH (21:00)
[2024-09-11 00:34] VITALS: BP 143/63; O2SAT 96
[2024-09-11 04:03] VITALS: BP 160/70; O2SAT 96
[2024-09-11 08:41] VITALS: BP 148/64; O2SAT 93
[2024-09-11] MEDS ORDERED: LACTULOSE 20 G/30 ML BLIST.PACK PO STA (15:57)
[2024-09-11 16:30] VITALS: BP 99/67; O2SAT 98
[2024-09-11] MEDS ORDERED: MINERAL OIL 30 ML BLIST.PACK PO STA (16:54)
[2024-09-11] MEDS ORDERED: MAGNESIUM HYDROXIDE 400 MG/5 ML ML PO STA (16:55)
[2024-09-11] MEDS ORDERED: MAGNESIUM HYDROXIDE 30 ML BLIST.PACK PO STA (16:55)
[2024-09-11 17:00] VITALS: O2SAT 95
[2024-09-11] MEDS ORDERED: DOCUSATE SODIUM 100MG CAP PO SCH (17:00)
[2024-09-11 21:00] VITALS: O2SAT 96
[2024-09-12] VITALS (8 sets, daily range): BP systolic 104–155; BP diastolic 68–76; O2SAT 94–99
[2024-09-12] MEDS ORDERED: FUROsemide 20 MG/2 ML VIAL IV SCH (09:00)
[2024-09-12] MEDS ORDERED: PIPERACILLIN/TAZOBACTAM SODIUM 3.375 GM in 0.9 % SODIUM CHLORIDE 100 ML IV SCH (13:14)
[2024-09-12] MEDS ORDERED: NA PHOS,M-B/NA PHOS,DI-BA 1 BOTTLE ENEMA RECTAL STA (14:59)
[2024-09-12] MEDS ORDERED: MINERAL OIL 30 ML BLIST.PACK PO STA (14:59)
[2024-09-12] MEDS ORDERED: LACTULOSE 20 G/30 ML BLIST.PACK PO STA (14:59)
[2024-09-12] MEDS ORDERED: HYOSCYAMINE SULFATE 0.125 MG TAB.SUBL SL PRN (15:00)
[2024-09-12] MEDS ORDERED: MAGNESIUM HYDROXIDE 30 ML BLIST.PACK PO STA (15:00)
[2024-09-12] MEDS ORDERED: HYOSCYAMINE SULFATE 0.125 MG TAB.SUBL SL STA (15:00)
[2024-09-12] MEDS ORDERED: METOPROLOL TARTRATE 25 MG TABLET PO SCH (17:00)
[2024-09-13] VITALS (10 sets, daily range): BP systolic 133–174; BP diastolic 66–77; O2SAT 92–100
[2024-09-13] MEDS ORDERED: MEROPENEM 500 MG/VIAL VIAL IV SCH
[2024-09-13 06:45] LABS: HEMATOCRIT 31.6 % (36.0-45.00); HEMOGLOBIN 10.5 g/dL (12.0-15.00); MEAN CELL VOLUME 92.9 fL (80.00-100.00); MEAN CORPUSCULAR HGB CONC 33.4 g/dl (32.0-36.0); PLATELET COUNT 250 K/uL (150-450); RED CELL DISTRIBUTION WIDTH 14.7 % (11.5-14.5)
[2024-09-13 06:52] LABS: URINE APPEARANCE Cloudy; URINE BILIRRUBIN Negative (NEGATIVE); URINE BLOOD Large; URINE COLOR Dark Yellow; URINE GLUCOSE Negative (NEGATIVE); URINE KETONE Trace (NEGATIVE); URINE LEUKOCYTE Moderate; URINE NITRATE Negative
[2024-09-13 06:53] LABS: URINE BACTERIA 195.2 uL (0.0-1933); URINE EPITHELIAL CELLS 26.9 uL (0.0-38.8); URINE RBC 2821.1 uL (0.0-20.8); URINE WBC 498.3 uL (0.0-23.2)
[2024-09-13 07:10] LABS: URINE CAST 0.91 uL (0.0-1.40); URINE CRYSTALS FEW /HPF; URINE PROTEIN 300 (NEGATIVE)
[2024-09-13 07:27] LABS: ALBUMIN 2.5 gm/dL (3.4-5.0); BILIRUBIN TOTAL 0.63 mg/dL (0.3-1.2); CALCIUM 8.7 mg/dL (8.5-10.1); CREATININE SERUM 0.68 mg/dL (0.55-1.02); GFR 82.84; GLOBULINA 3.2 G/DL (2.4-3.5); MAGNESIUM 2.1 mg/dL (1.8-2.4); PHOSPHOROUS 2.9 mg/dL (2.5-4.9); POTASSIUM 4.34 mEq/L (3.5-5.1); TOTAL PROTEIN 5.7 gm/dL (6.4-8.2)
[2024-09-13] MEDS ORDERED: FUROsemide 20 MG TABLET PO SCH (09:00)
[2024-09-13] MEDS ORDERED: AMLODIPINE BESYLATE 5 MG TABLET PO NR (11:30)
[2024-09-13] MEDS ORDERED: CODEINE PHOSPHATE/GUAIFENESIN 5 ML ML PO PRN (18:30)
[2024-09-13] MEDS ORDERED: BENZONATATE 100 MG CAPSULE PO PRN (18:30)
[2024-09-14] VITALS (9 sets, daily range): BP systolic 124–142; BP diastolic 66–74; O2SAT 90–97
[2024-09-14] MEDS ORDERED: PANTOPRAZOLE SODIUM 40 MG TABLET.DR PO SCH (09:00)
[2024-09-14] MEDS ORDERED: AMLODIPINE BESYLATE 5 MG TABLET PO SCH (09:00)
[2024-09-15] VITALS (8 sets, daily range): BP systolic 120–141; BP diastolic 60–71; O2SAT 92–98
[2024-09-15] MEDS ORDERED: IRON FUM,PS/FOLIC/BCOMP,C NO.9 1 CAP CAPSULE PO SCH (09:00)
[2024-09-16] VITALS (8 sets, daily range): BP systolic 107–158; BP diastolic 60–70; O2SAT 87–99
[2024-09-16 11:56] LABS: HEMATOCRIT 31.3 % (36.0-45.00); MEAN CELL VOLUME 91.6 fL (80.00-100.00); MEAN CORPUSCULAR HEMOGLOBIN 31.2 pg (27.00-32.0); MEAN CORPUSCULAR HGB CONC 34.1 g/dl (32.0-36.0); PLATELET COUNT 273 K/uL (150-450); RED BLOOD COUNT 3.42 M/uL (4.00-6.00); RED CELL DISTRIBUTION WIDTH 14.6 % (11.5-14.5)
[2024-09-16 11:57] LABS: HEMOGLOBIN 10.7 g/dL (12.0-15.00)
[2024-09-16 12:30] LABS: ALBUMIN 2.5 gm/dL (3.4-5.0); BILIRUBIN TOTAL 0.72 mg/dL (0.3-1.2); CALCIUM 8.5 mg/dL (8.5-10.1); CREATININE SERUM 0.7 mg/dL (0.55-1.02); GFR 80.11; GLOBULINA 3.4 G/DL (2.4-3.5); MAGNESIUM 1.8 mg/dL (1.8-2.4); POTASSIUM 4.07 mEq/L (3.5-5.1); TOTAL PROTEIN 5.9 gm/dL (6.4-8.2)
[2024-09-16] MEDS ORDERED: CODEINE PHOSPHATE/GUAIFENESIN 5 ML ML PO PRN (12:45)
[2024-09-16 13:59] LABS: ABG PH 7.471 (7.35-7.45); ABG PO2 49.2 mmHg (80-100); ABG pCO2 44.9 mmHg (35-45); BASE EXCESS 7.3 mmol/l; SaO2 87.9 %; Tco2 33.4 mmol/l; allen test SATISFACTORY; o2 21 %; puncture site RADIAL LEFT
[2024-09-16] MEDS ORDERED: AMLODIPINE BESYLATE 5 MG TABLET PO SCH (18:18)
[2024-09-16 23:52] LABS: ABG PH 7.459 (7.35-7.45); ABG pCO2 50.4 mmHg (35-45)
[2024-09-16 23:53] LABS: ABG PO2 52.3 mmHg (80-100); BASE EXCESS 9.3 mmol/l; BICARBONATE 34.9 mmol/l (23-25); SaO2 89.5 %; Tco2 36.5 mmol/l; allen test SATISFACTORY; o2 36 %; puncture site RADIAL LEFT
[2024-09-17] VITALS (8 sets, daily range): BP systolic 136–146; BP diastolic 67–76; O2SAT 93–99
[2024-09-17] MEDS ORDERED: IPRATROPIUM BROMIDE 0.5 MG/2.5 ML AMPUL.NEB IH SCH (13:57)
[2024-09-17] MEDS ORDERED: LEVALBUTEROL HCL 0.63 MG/3 ML SOLUTION IH SCH (13:57)
[2024-09-17] MEDS ORDERED: BUDESONIDE 0.25 MG/2 ML AMPUL.NEB IH SCH (13:58)
[2024-09-18] VITALS (8 sets, daily range): BP systolic 120–144; BP diastolic 61–69; O2SAT 90–99
[2024-09-18 12:36] LABS: ABG PH 7.477 (7.35-7.45); ABG pCO2 44.3 mmHg (35-45); BASE EXCESS 7.5 mmol/l; BICARBONATE 32.1 mmol/l (23-25); SaO2 89.1 %; Tco2 33.4 mmol/l
[2024-09-18 12:39] LABS: ABG PO2 50.8 mmHg (80-100)
[2024-09-18 12:40] LABS: allen test SATISFACTORY; o2 21 %; puncture site RADIAL LEFT
[2024-09-18] MEDS ORDERED: CODEINE PHOSPHATE/GUAIFENESIN 5 ML ML PO PRN (14:00)
[2024-09-18 15:09] LABS: HEMATOCRIT 34.1 % (36.0-45.00); HEMOGLOBIN 11.5 g/dL (12.0-15.00); MEAN CELL VOLUME 91.1 fL (80.00-100.00); MEAN CORPUSCULAR HEMOGLOBIN 30.9 pg (27.00-32.0); MEAN CORPUSCULAR HGB CONC 33.9 g/dl (32.0-36.0); PLATELET COUNT 287 K/uL (150-450); RED BLOOD COUNT 3.74 M/uL (4.00-6.00); RED CELL DISTRIBUTION WIDTH 15.3 % (11.5-14.5)
[2024-09-18 15:41] LABS: ALBUMIN 2.5 gm/dL (3.4-5.0); BILIRUBIN TOTAL 0.49 mg/dL (0.3-1.2); CALCIUM 8.3 mg/dL (8.5-10.1); CREATININE SERUM 0.62 mg/dL (0.55-1.02); GFR 92.15; GLOBULINA 3.6 G/DL (2.4-3.5); MAGNESIUM 1.9 mg/dL (1.8-2.4); PHOSPHOROUS 3.4 mg/dL (2.5-4.9); POTASSIUM 4.23 mEq/L (3.5-5.1); TOTAL PROTEIN 6.1 gm/dL (6.4-8.2)
[2024-09-18] MEDS ORDERED: AMIODARONE HCL 200 MG TABLET PO SCH (17:00)
[2024-09-19 00:31] VITALS: O2SAT 90
[2024-09-19 03:03] VITALS: BP 132/61; O2SAT 91
[2024-09-19 03:08] VITALS: O2SAT 93
[2024-09-19 08:51] VITALS: O2SAT 99
[2024-09-19 09:12] VITALS: BP 130/68
[2024-09-19] MEDS ORDERED: XARELTO20 MG PO (11:07)
[2024-09-19] MEDS ORDERED: LEVALBUTER0.31 MG/3 IH (11:07)
[2024-09-19] MEDS ORDERED: AMLODIPINE BESYL5 MG PO (11:07)
[2024-09-19] MEDS ORDERED: IPRATROPIU0.2 MG/1 M IH (11:07)
[2024-09-19] MEDS ORDERED: AMIODARONE HCL200 MG PO (11:07)
[2024-09-19] MEDS ORDERED: INTEGRA PLUS C1 EACH PO (11:07)
[2024-09-19] MEDS ORDERED: CALCIUM 500-VI1 EAC6 PO (11:08)
[2024-09-19] MEDS ORDERED: FUROSEMIDE20 MG PO (11:08)
[2024-09-19] MEDS ORDERED: LOPRESSOR25 MG PO (11:08)
[2024-09-19] MEDS ORDERED: BENZONATATE100 MG PO (11:09)
[2024-09-19] MEDS ORDERED: COLACE100 MG PO (11:10)
[2024-09-19] MEDS ORDERED: GUAIFENESIN AC C5 ML PO (11:10)
[2024-09-19] MEDS ORDERED: PANTOPRAZOLE SO40 MG PO (11:11)
[2024-09-19] MEDS ORDERED: LEVOTHYROXINE75 MCG PO (11:11)
[2024-09-19 12:57] VITALS: O2SAT 95
== END 2024-09-19 14:03 | disposition designated cancer center or children's hospital (05) | DRG 308 ==
LOC: ER 13:33 → ICU-2 19:16 → SEC-K 19:16 → MEDI 09-10 10:33 → SEC-K 09-10 10:39 → MEDI 09-10 16:17 → MEDJ 09-12 11:36
PROVIDERS: General Practice; Internal Medicine; Internal Medicine Infectious Disease; ADMIT Internal Medicine; ATTEND Internal Medicine
PROC: BW24YZZ Computerized Tomography (CT Scan) of Chest and Abdomen using Other Contrast (ICD-10-PCS; 2024-09-09)
PROC: B24BZZZ Ultrasonography of Heart with Aorta (ICD-10-PCS; principal; 2024-09-10)
PROC: 02HV33Z Insertion of Infusion Device into Superior Vena Cava, Percutaneous Approach (ICD-10-PCS; 2024-09-10)
PROC: 4A12X4Z Monitoring of Cardiac Electrical Activity, External Approach (ICD-10-PCS; 2024-09-11)
PROC: BB4BZZZ Ultrasonography of Pleura (ICD-10-PCS; 2024-09-12)
PROC: BW24YZZ Computerized Tomography (CT Scan) of Chest and Abdomen using Other Contrast (ICD-10-PCS; 2024-09-16)
DX: I48.20 Chronic atrial fibrillation, unspecified (principal); J18.9 Pneumonia, unspecified organism; K86.3 Pseudocyst of pancreas; N17.9 Acute kidney failure, unspecified; N39.0 Urinary tract infection, site not specified; I48.0 Paroxysmal atrial fibrillation; D64.9 Anemia, unspecified; B96.1 Klebsiella pneumoniae [K. pneumoniae] as the cause of diseases classified elsewhere; I11.0 Hypertensive heart disease with heart failure; I50.9 Heart failure, unspecified; R09.02 Hypoxemia; E03.9 Hypothyroidism, unspecified; I34.0 Nonrheumatic mitral (valve) insufficiency; I35.1 Nonrheumatic aortic (valve) insufficiency

== ENCOUNTER 2025-09-18 10:11 | Outpatient (CLI) | payer OTHER ==
[~2025-09-18 10:11] MED LIST changes: +AMLODIPINE BESYL5 MG PO; +BENZONATATE100 MG PO; +COLACE100 MG PO; +FUROSEMIDE20 MG PO; +GUAIFENESIN AC C5 ML PO; +INTEGRA PLUS C1 EACH PO; +IPRATROPIU0.2 MG/1 M IH; +LEVALBUTER0.31 MG/3 IH; +PANTOPRAZOLE SO40 MG PO
== END 2025-09-18 10:20 | disposition home or self-care (01) ==
LOC: NUCLEAR 10:11
PROVIDERS: ATTEND Internal Medicine
DX: I50.9 Heart failure, unspecified (principal); I48.0 Paroxysmal atrial fibrillation